=== PATIENT | male | born 1970 | race Caucasian/White ===

== ENCOUNTER 2019-02-01 08:22 | Day surgery (SDC) | payer OTHER ==
[~2019-02-01] VITALS: Ht 175.3 cm; Wt 93.9 kg
[2019-02-01 08:39] VITALS: BP 123/89; PULSE 79; TEMP 96.4
[2019-02-01] MEDS ORDERED: PENTASA500 MG PO (09:06)
[2019-02-01] MEDS ORDERED: NEXIUM 24HR20 M1 PO (09:07)
[2019-02-01] MEDS ORDERED: CRESTOR20 MG PO (09:07)
[2019-02-01 10:00] VITALS: BP 119/99; PULSE 84; TEMP 97.8
--- NOTE | 2019-02-01 10:00 | NUR ---
Pt arrived to post procedure room with Endo RN chatty and awake. Pt denies any discomfort or N/V. VSS and WNL. at bedside. Muffin and juice brought per pt's request.
[2019-02-01 10:15] VITALS: BP 120/93; PULSE 76
--- NOTE | 2019-02-01 10:15 | NUR ---
Pt successfully finished juice and muffin with no n/v or abdominal discomfort. VSS and WNL. Call light at bedside and at bedside.
[2019-02-01 10:30] VITALS: BP 119/77; PULSE 71
--- NOTE | 2019-02-01 10:30 | NUR ---
Dr. Tabor at [facility] discussing procedure. Pt states he's been ready to go home "15 minutes ago." Pt meets criteria for discharge. This RN reviewed discharge instructions including adverse signs/symptoms and number to call if needed for further concerns. Pt denies questions or concerns at this time and expressed understanding of the post procedure plan.
== END 2019-02-01 10:44 | disposition home or self-care (01) ==
LOC: SDCO 08:22
DX: K50.911 Crohn's disease, unspecified, with rectal bleeding (principal); Z79.899 Other long term (current) drug therapy; E78.00 Pure hypercholesterolemia, unspecified; Z83.1 Family history of other infectious and parasitic diseases; K63.3 Ulcer of intestine; K21.9 Gastro-esophageal reflux disease without esophagitis; G47.33 Obstructive sleep apnea (adult) (pediatric)
CPT/HCPCS: J2704; J7030

== ENCOUNTER 2021-07-09 14:23 | Emergency (ER) | payer OTHER ==
[~2021-07-09] VITALS: Ht 175.3 cm; Wt 95.5 kg
[~2021-07-09 14:23] MED LIST: CRESTOR20 MG PO; NEXIUM 24HR20 M1 PO; PENTASA500 MG PO
[2021-07-09 14:47] VITALS: TEMP 98.2
[2021-07-09 16:24] LABS: BASO # 0.1 K/mm3 (0.0-0.2); BASO % 0.9 % (0.0-2.0); EOS # 0.1 K/mm3 (0.0-0.7); EOS % 1.9 % (0.0-4.0); GRAN # 3.6 K/mm3 (1.4-6.5); GRAN % 54.9 % (42.2-75.2); HEMATOCRIT 44.2 % (42.0-52.0); HEMOGLOBIN 15.4 g/dl (13.5-18.0); LYMPH % 31.3 % (20.0-51.0); MEAN CELL VOLUME 87 fl (80.0-100.0); MEAN CORPUSCULAR HEMOGLOBIN 30 pg (27-31); MEAN CORPUSCULAR HGB CONC 35 g/dl (33.0-37.0); MEAN PLATELET VOLUME 8.9 fl (7.4-10.4); MONO # 0.7 K/mm3 (0.1-0.6); MONO % 10.7 % (1.7-9.3); PLATELET COUNT 267 K/mm3 (130-400); REDCELL DISTRIBUTION WIDTH-CV 12.2 % (11.5-14.5)
[2021-07-09 16:28] LABS: PROTHROMBIN TIME 11.4 SECONDS (9.7-12.8)
[2021-07-09 16:31] LABS: PARTIAL THROMBOPLASTIN TIME 31.7 SECONDS (26.0-37.0)
[2021-07-09 17:02] LABS: ALANINE AMINOTRANSFERASE 77 U/L (0-55); ALBUMIN 4.2 gm/dL (3.5-5.0); ALKALINE PHOSPHATASE 64 U/L (40-150); ANION GAP 12 mmol/L (7-16); AST,SGOT 29 U/L (5-34); BILIRUBIN,TOTAL 0.4 mg/dL (0.2-1.2); BLOOD UREA NITROGEN 12 mg/dL (9-21); CARBON DIOXIDE 23 mmol/L (22-29); CHLORIDE 105 mmol/L (98-107); CHOLESTEROL 192 mg/dL (0-199); CREATININE, serum 0.83 mg/dL (0.72-1.25); GLUCOSE 79 mg/dL (70-99); SODIUM 140 mmol/L (136-145); TOTAL PROTEIN 7.5 gm/dL (6.2-8.1); TRIGLYCERIDE 262 mg/dL (0-149)
[2021-07-09 17:23] LABS: TSH w REFLEX 0.715 uIU/mL (0.350-4.940)
[2021-07-09 17:24] LABS: TROPONIN-I < 0.010 ng/mL (0.00-0.033)
[2021-07-09 18:00] VITALS: BP 122/88; PULSE 93
== END 2021-07-09 18:00 | disposition home or self-care (01) ==
LOC: COL.ER 14:23
PROVIDERS: Family Medicine
DX: R00.0 Tachycardia, unspecified (principal); E78.1 Pure hyperglyceridemia; E78.5 Hyperlipidemia, unspecified; I10 Essential (primary) hypertension
CPT/HCPCS: J7030